=== PATIENT | female | born 1950 | race Caucasian/White ===

== ENCOUNTER → 2024-08-09 09:24 | Day surgery (SDC) | payer MEDICARE, SELFPAY ==
[2024-08-09 11:09] LABS: Hematocrit 35.3 % (37.0-47.0); Hemoglobin 11.9 g/dL (12.0-16.0); Mean Corp Hgb Conc. 33.7 g/dL (33.0-37.0); Mean Corpuscular Hgb 28.5 pg (27.0-31.0); Mean Corpuscular Volume 84.7 fL (81.0-99.0); Mean Platelet Volume 10.4 fL (7.4-10.4); Platelet Count 220 10^3/uL (130-400); Red Blood Cell Count 4.17 10^6/uL (4.20-5.40); Red Cell Dist. Width 14.1 % (11.5-14.5); White Blood Cell Count 8.3 10^3/uL (4.8-10.8)
[2024-08-09 11:42] LABS: Blood Urea Nitrogen 19 mg/dl (7-17); Calcium 9.4 mg/dl (8.4-10.2); Carbon Dioxide 26 mmol/L (22-30); Chloride 107 mmol/L (98-107); Glucose 98 mg/dl (70-99); Sodium 144 mmol/L (135-145); eGFR > 60.00
== END ==
LOC: SDSPAT 09:24
PROVIDERS: ATTENDING PHYSICIAN Orthopaedic Surgery Hand Surgery; FAMILY PHYSICIAN Family Medicine
DX: Z01.810 Encounter for preprocedural cardiovascular examination (principal); Z01.812 Encounter for preprocedural laboratory examination
CPT/HCPCS: 93005; 36415; 80048; 85027

== ENCOUNTER 2024-08-14 06:51 | Day surgery (SDC) | payer MEDICARE, SELFPAY ==
[2024-08-09 12:29] VITALS: BMI 38.0
[2024-08-14] VITALS (14 sets, daily range): BP systolic 123–180; BP diastolic 51–99; BMI 38.0
[2024-08-14] MEDS: CELEBREX 200 MG PO (10:21)
[2024-08-14] MEDS: TYLENOL 1000 MG PO (10:22)
== END 2024-08-14 16:00 | disposition home or self-care (01) ==
LOC: SDS 06:51
PROVIDERS: ATTENDING PHYSICIAN Orthopaedic Surgery Hand Surgery; FAMILY PHYSICIAN Family Medicine
DX: S46.012A Strain of muscle(s) and tendon(s) of the rotator cuff of left shoulder, initial encounter (principal); X58.XXXA Exposure to other specified factors, initial encounter; M75.42 Impingement syndrome of left shoulder
CPT/HCPCS: 29827; 29826; 29823; C1713